=== PATIENT | male | born 1955 | race Two or more races ===

== ENCOUNTER 2025-01-03 10:58 | Inpatient (IN) | payer OTHER ==
[~2025-01-03] VITALS: Ht 167.6 cm; Wt 117.9 kg
[2025-01-03] MEDS ORDERED: SYNTHROID75 MCG PO (11:59)
--- NOTE | 2025-01-03 12:00 | NUR ---
SE RECIBE ART GALLERY INTERNSHIP ALERTA Y ORIENTADO X3 REFIERE SE REALIZO EXAMENES DE RUTINA Y TIENE VALORES DE HEMOGLOBINA 4.6. SE JEFE S/V Y SE UBICA EN CAMA 8 EN OBSERVACION.
[2025-01-03] MEDS ORDERED: 0.9 % SODIUM CHLORIDE 1,000 ML IV ONE (12:45)
[2025-01-03] MEDS ORDERED: PANTOPRAZOLE SODIUM 40 MG/VIAL VIAL IV PUSH ONE (12:45)
[2025-01-03] MEDS ORDERED: OCTREOTIDE ACETATE 0.05MG/ML (50MCG/ML) AMPUL IV ONE (12:45)
[2025-01-03 14:15] LABS: BASO % 0.4 % (0.1-1.2); EOS # 0.19 (0.04-0.54); EOS % 3.5 % (0.7-7.0); LYMPH # 1.05 (1.18-3.74); LYMPH % 19.4 % (19.3-53.1); MEAN PLATELET VOLUME 11.20 fl (9.4-12.4); MONO # 0.34 (0.24-0.82); MONO % 6.3 % (4.7-12.5); NEUT # 3.70 (1.56-6.13); NEUT % 68.2 % (34.0-71.1); RED CELL DISTRIBUTION WIDTH 17.1 % (11.6-14.4)
--- NOTE | 2025-01-03 14:20 | NUR ---
PACIENTE EVALUADA POR QUIEN ORDENA TRATAMIENTO MEDICO, SE LE ORIENTA A PACIENTE SOBRE EL MISMO Y REFIERE ENTENDER. SE LE CANALIZA Y SE LE COLECTAN MUESTRAS DE LABORATORIO BAJO MEDIDAS ASEPTICAS. SE CORROBORA CON PACIENTE INFORMACION DE NOMBRE COMPLETO Y FECHA DE NACIMIENTO. SE LE COLECTAN TUBOS PILOTOS A PACIENTE, SE DC EN BANCO DE JOSE ALBERTO Y PERSONAL SE COMUNICA CON BANCO DE JOSE ALBERTO DE AUXILIO MUTUO QUIEN REFIERE QUE PACIENTE TIENE RECORD PREVIO VIGENTE. SE CONECTA PACIENTE A MONITOR CARDIACO, SE LE REALIZA EKG Y SE LE ADMINISTRAN MEDIAMENTOS.
[2025-01-03 14:22] LABS: INR 1.09
[2025-01-03] MEDS ORDERED: OCTREOTIDE ACETATE 0.05MG/ML (50MCG/ML) AMPUL ONE (14:25)
[2025-01-03 14:49] LABS: ALT/SGPT 28.0 U/L (12-78); AST/SGOT 34.0 U/L (15-37); BILIRUBIN TOTAL 1.24 mg/dL (0.3-1.2); BILIRUBIN,CONJUGATED 0.38 mg/dL (0.0-0.2); BUN CREA RATIO 12.0 (7.0-25.0); CREATININE SERUM 1.28 mg/dL (0.70-1.30); GFR 56.05; GLUCOSE FASTING 98.0 mg/dL (65-100); OSMOLALITY SERUM 288.0 MOSM/KG (275-295)
[2025-01-03] MEDS ORDERED: OCTREOTIDE ACETATE 1,000 MCG/5 ML VIAL IJ ONE (16:45)
[2025-01-03] MEDS ORDERED: PANTOPRAZOLE SODIUM 40 MG/VIAL VIAL IV ONE (16:45)
[2025-01-03] MEDS ORDERED: PANTOPRAZOLE SODIUM 80 MG in 0.9 % SODIUM CHLORIDE 100 ML IV SCH (17:45)
--- NOTE | 2025-01-03 18:28 | NUR ---
SE RECIBE PTE ALERTA Y ORIENTADO X 3 ESFERAS EN [place] TRA[place]O DE OBSERVACION,SE UBICA EN CAMA CON BARANDAS ELEVADAS,SE CONECTA A MONITOR CARDIACO Y OXIMETRIA.PTE CON AREAS DE VENOPUNCION PATENTES Y LIBRES DE EDEMA CON FLUIDOS DE MANTENIMIENTO,DRIP SANDOSTATIN @ 10ML/HR Y DRIP PROTONIX @ 1OML/HR LEVI ORDEN MEDICA,TODOS EN EXTREMIDAD LT.PENDIENTE A TRANSFUNDIR 3 UNIDADES DE PRBC PENDIENTS NO DISPONIBLES YA REQUISADAS,SE LOLIS PTE BAJO OBSERVACION POR CAMBIOS.
[2025-01-03 18:47] LABS: URINE APPEARANCE Clear; URINE BILIRRUBIN Negative (NEGATIVE); URINE BLOOD Negative; URINE COLOR Yellow; URINE GLUCOSE Negative (NEGATIVE); URINE KETONE Negative (NEGATIVE); URINE LEUKOCYTE Negative; URINE NITRATE Negative; URINE PROTEIN Negative (NEGATIVE); URINE UROBILINOGEN 1.0 E.U./dl
[2025-01-03 18:49] LABS: URINE WBC 2.4 uL (0.0-23.2)
[2025-01-03 19:12] LABS: URINE BACTERIA 2.3 uL (0.0-1933); URINE CAST 0.00 uL (0.0-1.40); URINE EPITHELIAL CELLS 1.2 uL (0.0-38.8); URINE RBC 0.1 uL (0.0-20.8)
[2025-01-03] MEDS ORDERED: CEFTRIAXONE SODIUM 1,000 MG VIAL IV SCH (19:39)
[2025-01-03] MEDS ORDERED: 0.9 % SODIUM CHLORIDE 1,000 ML IV SCH (19:45)
[2025-01-03] MEDS ORDERED: CEFTRIAXONE SODIUM 1,000 MG VIAL ONE (20:28)
[2025-01-03 21:40] VITALS: BP 126/67; O2SAT 100
[2025-01-03 23:53] VITALS: BP 103/55; O2SAT 100
[2025-01-04] VITALS (9 sets, daily range): BP systolic 90–1033; BP diastolic 43–76; O2SAT 96–100
[2025-01-04] MEDS ORDERED: PANTOPRAZOLE SODIUM 40 MG/VIAL VIAL ONE (05:19)
[2025-01-04] MEDS ORDERED: LEVOTHYROXINE SODIUM 75 MCG TABLET PO SCH (06:00)
[2025-01-04 11:19] LABS: BASO % 0.7 % (0.1-1.2); EOS # 0.24 (0.04-0.54); EOS % 5.3 % (0.7-7.0); LYMPH # 0.84 (1.18-3.74); LYMPH % 18.4 % (19.3-53.1); MEAN PLATELET VOLUME 10.40 fl (9.4-12.4); MONO # 0.26 (0.24-0.82); MONO % 5.7 % (4.7-12.5); NEUT # 3.12 (1.56-6.13); NEUT % 68.4 % (34.0-71.1); RED CELL DISTRIBUTION WIDTH 16.6 % (11.6-14.4)
[2025-01-04 11:38] LABS: D DIMER 0.87 MG/L
[2025-01-04] MEDS ORDERED: OCTREOTIDE ACETATE 1,250 MCG in 0.9 % SODIUM CHLORIDE 250 ML IV SCH (17:00)
[2025-01-05 04:00] VITALS: BP 125/73; O2SAT 99
[2025-01-05 07:21] VITALS: BP 127/77; O2SAT 98
[2025-01-05 07:52] LABS: BASO % 0.6 % (0.1-1.2); EOS # 0.30 (0.04-0.54); EOS % 5.5 % (0.7-7.0); LYMPH # 0.67 (1.18-3.74); LYMPH % 12.4 % (19.3-53.1); MEAN PLATELET VOLUME 10.20 fl (9.4-12.4); MONO # 0.34 (0.24-0.82); MONO % 6.3 % (4.7-12.5); NEUT # 3.90 (1.56-6.13); NEUT % 71.9 % (34.0-71.1); RED CELL DISTRIBUTION WIDTH 16.0 % (11.6-14.4)
[2025-01-05 09:16] LABS: BASOPHIL MAN 1.0 %; EOSINOPHIL MAN 3.0 %; LYMPHOCYTE MAN 8.0 %; METAMYELOCYTE 1.0 %; MONOCYTE MAN 6.0 %; NEUTROPHILS MAN 81.0 %
[2025-01-05 12:00] VITALS: BP 135/71; O2SAT 100
[2025-01-05 15:21] VITALS: BP 124/50; O2SAT 100
[2025-01-05] MEDS ORDERED: SODIUM CL 0.9% 250 ML IV.SOLN ONE (16:48)
[2025-01-05 20:00] VITALS: BP 129/64; BP 144/78; O2SAT 100
[2025-01-05 23:13] VITALS: BP 116/60; O2SAT 100
[2025-01-06 00:24] LABS: BASO % 0.5 % (0.1-1.2); EOS # 0.25 (0.04-0.54); EOS % 4.0 % (0.7-7.0); LYMPH # 0.98 (1.18-3.74); LYMPH % 15.9 % (19.3-53.1); MEAN PLATELET VOLUME 9.90 fl (9.4-12.4); MONO # 0.41 (0.24-0.82); MONO % 6.6 % (4.7-12.5); NEUT # 4.38 (1.56-6.13); NEUT % 70.9 % (34.0-71.1); RED CELL DISTRIBUTION WIDTH 16.2 % (11.6-14.4)
[2025-01-06 04:00] VITALS: BP 133/73; O2SAT 98
[2025-01-06 07:18] VITALS: BP 133/76; O2SAT 99
[2025-01-06 09:25] LABS: BASO % 0.5 % (0.1-1.2); EOS # 0.26 (0.04-0.54); EOS % 4.3 % (0.7-7.0); LYMPH # 0.84 (1.18-3.74); LYMPH % 13.8 % (19.3-53.1); MEAN PLATELET VOLUME 10.20 fl (9.4-12.4); MONO # 0.42 (0.24-0.82); MONO % 6.9 % (4.7-12.5); NEUT # 4.41 (1.56-6.13); NEUT % 72.7 % (34.0-71.1); RED CELL DISTRIBUTION WIDTH 16.3 % (11.6-14.4)
[2025-01-06 10:17] LABS: BUN CREA RATIO 12.0 (7.0-25.0); CREATININE SERUM 1.23 mg/dL (0.70-1.30); GFR 58.69; GLUCOSE FASTING 90.0 mg/dL (65-100); OSMOLALITY SERUM 289.0 MOSM/KG (275-295)
[2025-01-06 12:00] VITALS: BP 132/66; O2SAT 99
[2025-01-06] MEDS ORDERED: DIPHENHYDRAMINE HCL 50 MG/ML VIAL 1ML ONE (13:48)
[2025-01-06] MEDS ORDERED: DIPHENHYDRAMINE HCL 50 MG/ML VIAL 1ML IV NR (14:15)
[2025-01-06] MEDS ORDERED: MIDAZOLAM HCL 2 MG/2 ML VIAL IV ONE (14:30)
[2025-01-06 15:20] VITALS: BP 138/70; O2SAT 100
[2025-01-06] MEDS ORDERED: SODIUM CL 0.9% 250 ML IV.SOLN ONE (22:09)
[2025-01-06 23:06] VITALS: BP 132/82; O2SAT 98
[2025-01-07 04:23] VITALS: BP 149/82; O2SAT 100
[2025-01-07 06:44] LABS: BASO % 0.5 % (0.1-1.2); EOS # 0.34 (0.04-0.54); EOS % 5.7 % (0.7-7.0); LYMPH # 0.78 (1.18-3.74); LYMPH % 13.2 % (19.3-53.1); MEAN PLATELET VOLUME 9.80 fl (9.4-12.4); MONO # 0.43 (0.24-0.82); MONO % 7.3 % (4.7-12.5); NEUT # 4.29 (1.56-6.13); NEUT % 72.5 % (34.0-71.1); RED CELL DISTRIBUTION WIDTH 16.5 % (11.6-14.4)
[2025-01-07 08:00] VITALS: BP 136/79; O2SAT 100
[2025-01-07] MEDS ORDERED: CARVEDILOL 3.125 MG TABLET PO SCH (09:00)
[2025-01-07 12:00] VITALS: BP 137/66; O2SAT 97
[2025-01-07 15:23] VITALS: BP 137/66; O2SAT 100
== END 2025-01-07 18:15 | disposition home or self-care (01) | DRG 379 ==
LOC: ER 10:59 → ICU-2 20:31 → ICU 21:24
PROVIDERS: Emergency Medicine; General Practice; ADMIT Student in an Organized Health Care Education/Training Program; ATTEND Student in an Organized Health Care Education/Training Program
PROC: BW21YZZ Computerized Tomography (CT Scan) of Abdomen and Pelvis using Other Contrast (ICD-10-PCS; principal; 2025-01-03)
PROC: 30233N1 Transfusion of Nonautologous Red Blood Cells into Peripheral Vein, Percutaneous Approach (ICD-10-PCS; 2025-01-03)
PROC: 0DJD8ZZ Inspection of Lower Intestinal Tract, Via Natural or Artificial Opening Endoscopic (ICD-10-PCS; 2025-01-06)
DX: K92.2 Gastrointestinal hemorrhage, unspecified (principal); D64.89 Other specified anemias; K74.60 Unspecified cirrhosis of liver